=== PATIENT | male | born 1965 | race Caucasian/White ===

== ENCOUNTER 2018-08-20 20:06 | Emergency (ER) | payer SELFPAY ==
[~2018-08-20] VITALS: Ht 177.8 cm; Wt 113.4 kg
[2018-08-20] MEDS ORDERED: MORPHINE SULFATE 4 MG/ML SYR/VIAL IV ONE (21:15)
[2018-08-20] MEDS ORDERED: ONDANSETRON HCL 4 MG/2 ML VIAL IV ONE (21:15)
[2018-08-20] MEDS ORDERED: SODIUM CHLORIDE 0.9% 1,000 ML IV ONE (21:15)
[2018-08-20 21:59] LABS: Basophils # (auto) 0 uL; Basophils % (auto) 0.2 % (0.0-2.0); Eosinophils # (auto) 0 uL; Eosinophils % (auto) 0.2 % (0.0-7.0); Hematocrit 49.4 % (41.0-53.0); Hemoglobin 16.4 g/dL (13.5-17.5); Lymphocytes # (auto) 1.1 uL; Lymphocytes % (auto) 7.7 % (10.0-50.0); Mean Corpuscular Hemoglobin 29.7 pg (28.0-32.0); Mean Corpuscular Hgb Conc. 33.2 g/dL (32.0-36.0); Mean Corpuscular Volume 89.6 fL (80.0-100.0); Monocytes # (auto) 0.6 uL; Monocytes % (auto) 4.6 % (0.0-12.0); Neutrophils % (auto) 87.3 % (37.0-80.0); Platelet Count (auto) 200 10^3/uL (140-450); Red Blood Cells 5.51 10^6/uL (4.5-5.90); Red Cell Distribution Width 13.6 % (11.8-14.3); White Blood Cell 13.7 10^3/uL (4.4-10.8)
[2018-08-20 22:17] LABS: Albumin 3.9 g/dL (3.4-5.0); Anion Gap 9 (5-15); Blood Urea Nitrogen 18 mg/dL (7-18); Calcium 9.5 mg/dL (8.5-10.1); Carbon Dioxide 22 mmol/L (21-32); Chloride 106 mmol/L (98-107); Glucose 160 mg/dL (74-106); INR 0.87 (0.9-1.15); Partial Thromboplastin Time 26.6 sec (23.78-33.04); Potassium 4.2 mmol/L (3.5-5.1); Prothrombin Time 9.4 sec (9.27-12.13); Sodium 137 mmol/L (136-145)
[2018-08-20 22:21] LABS: Alanine Aminotransferase 45 U/L (16-61); Amylase 49 U/L (25-115); Aspartate Aminotransferase 28 U/L (15-37); BUN/Creatinine Ratio 12.2; GFR African American 64 mL/min; GFR Non-African American 53 mL/min; Lipase 106 U/L (73-393)
[2018-08-20 22:26] LABS: Alkaline Phosphatase 138 U/L (45-117); Bilirubin, Total 0.4 mg/dL (0.2-1.0); Total Protein 7.7 g/dL (6.4-8.2)
[2018-08-21 00:26] VITALS: BP 169/105
== END 2018-08-21 04:32 | disposition home or self-care (01) ==
LOC: ER 20:13 → EDBD 20:13 → ER 08-21 04:32
DX: N20.0 Calculus of kidney (principal); K59.00 Constipation, unspecified; Z95.1 Presence of aortocoronary bypass graft
CPT/HCPCS: 36415; 71046; 74176; 80053; 82150; 83690; 84484; 85025; 85610; 85730; 93005; 94761; 96374; 96375; 99284; J2270; J2405; J7030